=== PATIENT | male | born 1935 | race Caucasian/White ===

== ENCOUNTER 2023-02-15 08:46 | Day surgery (SDC) | payer MEDICARE, OTHER ==
[2023-02-15] MEDS ORDERED: BUPIVACAINE 0.5% VIAL IJ ONE (08:47)
[2023-02-15] MEDS ORDERED: Depo-Medrol 40 MG/ML IM ONE (08:47)
[2023-02-15] MEDS ORDERED: Versed 2 MG/2 ML Injection ONE (10:38)
[2023-02-15] MEDS ORDERED: SUBLIMAZE 100 MCG/2 ML ONE (10:38)
--- NOTE | 2023-02-15 11:23 | XRAY ---
Indication: Bilateral SI joint injection. Intraoperative fluoroscopy provided 27 seconds. 4 digital spot image submitted for interpretation demonstrates posterior needle tip projecting over the left and right SI joint. Correlate with intraoperative findings/report.
--- NOTE | 2023-02-15 11:41 | XRAY ---
27 seconds of fluoroscopy was used in surgery for a bilateral sacroiliac joint injection.
[2023-02-15] MEDS ORDERED: Lactated Ringers 1,000 ML IV ONE (12:45)
== END 2023-02-15 11:10 | disposition home or self-care (01) ==
LOC: SDC-PAIN 08:46
PROVIDERS: ATTEND Psychiatry & Neurology Pain Medicine
DX: M46.1 Sacroiliitis, not elsewhere classified (principal); E11.9 Type 2 diabetes mellitus without complications; Z79.899 Other long term (current) drug therapy
CPT/HCPCS: 01992; 27096; 72202; 77002; 82947; 99100; G0260; J1030; J2250; J3010

== ENCOUNTER 2023-04-12 11:23 | Day surgery (SDC) | payer MEDICARE, OTHER ==
[2023-04-12] MEDS ORDERED: LIDOCAINE HCL 1% 50 MG/5 ML VL PF IJ ONE (11:24)
[2023-04-12] MEDS ORDERED: Sodium Chloride 0.9(Preservative Free) 10 ML IJ ONE (11:24)
[2023-04-12] MEDS ORDERED: Depo-Medrol 40 MG/ML IM ONE (11:24)
[2023-04-12] MEDS ORDERED: DIPRIVAN 200 MG/20 ML IV ONE (13:13)
--- NOTE | 2023-04-12 14:50 | XRAY ---
Indication: Lumbar JOLIE. Intraoperative fluoroscopy was provided for 39 seconds. 2 digital spot images submitted for interpretation demonstrates posterior needle tip projecting just posterior to a mid lumbar segment with small amount of contrast injected for needle tip placement. Correlate with intraoperative findings/report. Incidental incompletely visualized lower lumbar posterior fusion hardware.
[2023-04-12] MEDS ORDERED: Lactated Ringers 1,000 ML IV ONE (16:16)
--- NOTE | 2023-04-12 16:27 | XRAY ---
39 seconds of fluoroscopy was used in surgery for a lumbar JOLIE.
== END 2023-04-12 13:45 | disposition home or self-care (01) ==
LOC: SDC-PAIN 11:23
PROVIDERS: ATTEND Psychiatry & Neurology Pain Medicine
DX: M54.16 Radiculopathy, lumbar region (principal); E11.9 Type 2 diabetes mellitus without complications; Z79.899 Other long term (current) drug therapy
CPT/HCPCS: 62323; 72100; 77003; 82947; J1030; J2001; J2704; Q9966